=== PATIENT | male | born 1995 | race Two or more races ===

== ENCOUNTER 2025-01-24 16:29 | Emergency (ER) | payer MEDICAID, OTHER ==
[~2025-01-24] VITALS: Ht 170.2 cm; Wt 65.8 kg
[2025-01-24 17:16] VITALS: BP 118/67; TEMP 98.3; O2SAT 96
[2025-01-24] MEDS ORDERED: AMOX500C2 PO (21:53)
== END 2025-01-24 22:30 | disposition home or self-care (01) ==
LOC: ER 16:39
DX: J02.9 Acute pharyngitis, unspecified (principal); M79.10 Myalgia, unspecified site; R51.9 Headache, unspecified; Z60.2 Problems related to living alone
CPT/HCPCS: 86403-TC; 87070-TC